=== PATIENT | female | born 1955 | race Caucasian/White ===

== ENCOUNTER → 2017-08-22 | Day surgery (SDC) | payer BC ==
[~2017-08-22] VITALS: Ht 157.5 cm
[~2017-08-22] MED LIST: ASPI81TA28 PO; CHOL2000 PO; CLR10 PO; FAMO20TA11 PO; FIBER CAP PO; GLC/500 PO; HYG/25 PO; LIDOCAINE HCL 2% 2 ML VIAL (20MG/ML) ONE; MIDAZOLAM HCL 1 MG/ML 2ML VIAL ONE; MULT-513 PO; PROPOFOL IV EMULSION 10 MG/ML 20 ML VIAL IV ONE; RALO60TA30 PO; SIMV80TA2 PO; VNTHFA/IN INH
[2017-08-22 13:28] VITALS: Ht 157.5 cm
--- NOTE | 2017-08-22 13:55 | Endo History and Physical ---
History & Physical Date of Service: Aug 22, 2017. Chief Complaint: Hx polyps Referring Physician: MIKE Shaw History of Present Illness For colonoscopy Past Surgical History Hx Cardiac Surgery: No Hx Internal Defibrillator: No Hx Pacemaker: No Hx Abdominal Surgery: No Hx of Implantable Prosthesis: No Hx Post-Op Nausea and Vomiting: Yes Hx Cancer Surgery: No Hx Thoracic Surgery: No Hx Orthopedic: No Hx Urinary Tract Surgery: No Family History Colon CA Social History Smoking Status: Never Smoker Hx Substance Use: No Hx Alcohol Use: No Allergies Coded Allergies: NO KNOWN DRUG ALLERGIES (Verified Allergy, Unknown, ., 08/12/17) POLLEN (Verified Allergy, Unknown, SINUS INFECTIONS, 08/12/17) Uncoded Allergies: FRESH FRUITS (Adverse Reaction, Unknown, OTHER, 08/12/17) PATIENT STATES THAT FROM FRESH FRUITS , ESPECIALLY APPLES AND GRAPES, SHE GETS A WEIRD FEELING IN HER THROAT AND ITCHING NOTED IN HER EARS. SHE WILL TAKE A BENADRYL AND IT WILL CLEAR UP. SHE STATES COOKED FRUIT IS OKAY WITH NO ADVERSE REACTIONS. Current Medications Reported Home Medications Medications Dose Route/Sig Max Daily Dose Days Date Category [Fiber Cap] 625 Mg PO BID 08/12/17 Reported Glucophage (Metformin Hcl) 500 Mg Tab 500 Mg PO BID 08/12/17 Reported Evista (Raloxifene Hcl) 60 Mg Tab 60 Mg PO HS 08/12/17 Reported Hygroton (Chlorthalidone) 25 Mg Tab 0.5 Tab PO QPM 08/12/17 Reported Vitamin D3 (Cholecalciferol) 2,000 Unit Cap 1 Cap PO QAM 90 08/12/17 Reported Ventolin Hfa (Albuterol) 200 Puffs/01719 Mcg Aers 2-4 Puffs INH Q6H PRN 08/12/17 Reported Zocor (Simvastatin) 80 Mg Tab 80 Mg PO QPM 08/25/13 Reported Mvi With Minerals (Multivitamins/Minerals) Tab 1 Tab PO QAM 08/25/13 Reported Claritin (Loratadine) 10 Mg Tab 10 Mg PO DAILY PRN 08/25/13 Reported Aspirin Ec (Aspirin) 81 Mg Tab 81 Mg PO QPM 08/25/13 Reported Pepcid (Famotidine) 20 Mg Tab 20 Mg PO BID 02/04/07 Reported Vital Signs Weight (Kilograms): 0.00 Height (Feet): 5 Height (Inches): 2 Date Time Temp Pulse Resp B/P (MAP) Pulse Ox O2 Delivery O2 Flow Rate FiO2 08/22/17 13:36 37 88 18 166/93 (117) 93 Room Air Physical Exam General Appearance: + obese Respiratory/Chest: Respiratory effort: no dyspnea Cardiovascular: Heart Auscultation: RRR Abdomen: Inspection & Palpation: soft Assessment and Plan Hx of polyps for colonoscopy
--- NOTE | 2017-08-22 14:26 | Discharge Instructions ---
Endoscopy Patient Instructions Date / Procedure(s) Performed Aug 22, 2017. Colonoscopy Allergy Information Coded Allergies: NO KNOWN DRUG ALLERGIES (Verified Allergy, Unknown, ., 08/12/17) POLLEN (Verified Allergy, Unknown, SINUS INFECTIONS, 08/12/17) Uncoded Allergies: FRESH FRUITS (Adverse Reaction, Unknown, OTHER, 08/12/17) PATIENT STATES THAT FROM FRESH FRUITS , ESPECIALLY APPLES AND GRAPES, SHE GETS A WEIRD FEELING IN HER THROAT AND ITCHING NOTED IN HER EARS. SHE WILL TAKE A BENADRYL AND IT WILL CLEAR UP. SHE STATES COOKED FRUIT IS OKAY WITH NO ADVERSE REACTIONS. Discharge Date / Findings Aug 22, 2017. polyp, diverticulosis, hemorrhoids Medication Instructions Stopped Medication(s): Metformin on Tuesday08-19-17 Restart Stopped Medication(s): resume meds Reported Home Medications Medications Dose Route/Sig Max Daily Dose Days Date Category [Fiber Cap] 625 Mg PO BID 08/12/17 Reported Glucophage (Metformin Hcl) 500 Mg Tab 500 Mg PO BID 08/12/17 Reported Evista (Raloxifene Hcl) 60 Mg Tab 60 Mg PO HS 08/12/17 Reported Hygroton (Chlorthalidone) 25 Mg Tab 0.5 Tab PO QPM 08/12/17 Reported Vitamin D3 (Cholecalciferol) 2,000 Unit Cap 1 Cap PO QAM 90 08/12/17 Reported Ventolin Hfa (Albuterol) 200 Puffs/75355 Mcg Aers 2-4 Puffs INH Q6H PRN 08/12/17 Reported Zocor (Simvastatin) 80 Mg Tab 80 Mg PO QPM 08/25/13 Reported Mvi With Minerals (Multivitamins/Minerals) Tab 1 Tab PO QAM 08/25/13 Reported Claritin (Loratadine) 10 Mg Tab 10 Mg PO DAILY PRN 08/25/13 Reported Aspirin Ec (Aspirin) 81 Mg Tab 81 Mg PO QPM 08/25/13 Reported Pepcid (Famotidine) 20 Mg Tab 20 Mg PO BID 02/04/07 Reported Provider Instructions Activity Restrictions - No exercising or heavy lifting for 24 hours. - Do not drink alcohol the day of the procedure. - Do not drive a car or operate machinery until the day after the procedure. - Do not make any important decisions or sign important papers in 24 hours after the procedure. Following Day: - Return to full activity which may include returning to work/school. Diet Start your diet with liquids and light foods (jello, soup, juice, toast). Then eat your usual diet if not nauseated. Treatment For Common After Affects For mild abdominal pain, bloating, or excessive gas: - Rest - Eat lightly - Lie on right side Follow-Up Information Follow-up with MIKE Shaw as scheduled Anesthesia Information What You Should Know You have had a procedure that required some medicine to reduce anxiety and discomfort. This treatment is called moderate sedation. After receiving the treatment, you may be sleepy, but you will be able to breathe on your own. The effects of the treatment may last for several hours. Follow these instructions along with Activity/Diet recommendations noted above: * Do NOT do anything where dizziness or clumsiness would be dangerous. * Rest quietly at home today, then you can be up and about tomorrow. * Have a responsible person stay with you the rest of today. * You may have had an I.V. today. If so, you may take the dressing off later today. Recommendations Call your doctor if: * Trouble breathing * Continuous vomiting for more than 24 hours * Temperature above 101 degrees * Severe abdominal pain or bloating * Pain not relieved by pain medicine ordered * There is increased drainage or redness from any incision * A large amount of rectal bleeding greater than 2-3 tablespoons. (If you had a polyp/s removed or have hemorrhoids, a small amount of blood - from the rectum is to be expected.) * You have any unanswered questions or concerns. IN THE EVENT OF A SERIOUS EMERGENCY, GO TO THE NEAREST EMERGENCY ROOM Your discharge instructions were prepared by provider Irineo Durand. Patient Instructions Signature Page Aydee Vega Patient (or Guardian) Signature/Date: I have read and understand the instructions given to me by my caregivers. Caregiver/RN/Doctor Signature/Date: The above-named patient and/or guardian has received patient instructions on this date. + Original Patient Signature Page (only) stays with chart. Please make copy for patient.
--- NOTE | 2017-08-22 14:29 | GI REPORT ---
Procedure Date: 08/22/2017 1:56 PM Procedure: Colonoscopy Indications: Personal history of colonic polyps Medicines: Midazolam 2 mg IV, Propofol total dose 210 mg IV, Lidocaine 40 mg IV Complications: No immediate complications. Estimated Blood Loss: Estimated blood loss was minimal. Procedure: Pre-Anesthesia Assessment: - Prior to the procedure, a History and Physical was performed, and patient medications, allergies and sensitivities were reviewed. The patient's tolerance of previous anesthesia was reviewed. - The risks and benefits of the procedure and the sedation options and risks were discussed with the patient. All questions were answered and informed consent was obtained. After I obtained informed consent, the scope was passed under direct vision. Throughout the procedure, the patient's blood pressure, pulse, and oxygen saturations were monitored continuously. The scope was introduced through the anus and advanced to the cecum, identified by appendiceal orifice and ileocecal valve. The colonoscopy was somewhat difficult due to significant looping. Successful completion of the procedure was aided by applying abdominal pressure. The patient tolerated the procedure well. The quality of the bowel preparation was good. Findings: A few diverticula were found in the sigmoid colon. Non-bleeding internal hemorrhoids were found during endoscopy. The hemorrhoids were moderate. A 3 mm polyp was found in the cecum. The polyp was sessile. The polyp was removed with a cold biopsy forceps. Resection and retrieval were complete. Estimated blood loss was minimal. Impression: - Diverticulosis in the sigmoid colon. - Non-bleeding internal hemorrhoids. - One 3 mm polyp in the cecum, removed with a cold biopsy forceps. Resected and retrieved. Recommendation: - Discharge patient to home (ambulatory). - Continue present medications. - Await pathology results. - Return to primary care physician PRN. Irineo Durand M.D. Irineo Durand MD 08/22/2017 2:29:03 PM This report has been signed electronically. Note Initiated On: 08/22/2017 1:56 PM I attest to the content of the Intraoperative Record and orders documented therein, exceptions below
[2017-08-22 15:02] VITALS: BP 144/96; PULSE 79; O2SAT 98
--- NOTE | 2017-08-22 15:08 | Anesthesiology Progress Note ---
Anesthesia Post Op Note Date & Time Aug 22, 2017 at 15:08 Vital Signs Pain Intensity: 0 Vital Signs Past 12 Hours Date Time Temp Pulse Resp B/P (MAP) Pulse Ox O2 Delivery O2 Flow Rate FiO2 08/22/17 15:02 79 18 144/96 (112) 98 Room Air 08/22/17 14:47 79 18 147/97 (114) 93 Room Air 08/22/17 14:32 78 18 132/94 (107) 91 Room Air 08/22/17 13:36 37 88 18 166/93 (117) 93 Room Air Notes Mental Status: alert / awake / arousable, participated in evaluation Pt Amnestic to Procedure: Yes Nausea / Vomiting: adequately controlled Pain: adequately controlled Airway Patency, RR, SpO2: stable & adequate BP & HR: stable & adequate Hydration State: stable & adequate Anesthetic Complications: no major complications apparent
== END | disposition home or self-care (01) ==
LOC: C.GI 13:06
PROVIDERS: ATTEND Internal Medicine Gastroenterology
DX: Z12.11 Encounter for screening for malignant neoplasm of colon (principal); D12.0 Benign neoplasm of cecum; K57.30 Diverticulosis of large intestine without perforation or abscess without bleeding; K64.8 Other hemorrhoids; Z86.010 Personal history of colon polyps; Z80.0 Family history of malignant neoplasm of digestive organs; Z79.82 Long term (current) use of aspirin; Z79.84 Long term (current) use of oral hypoglycemic drugs; Z79.899 Other long term (current) drug therapy

== ENCOUNTER → 2017-10-14 | Outpatient (CLI) | payer BC ==
[~2017-10-14] MED LIST changes: -LIDOCAINE HCL 2% 2 ML VIAL (20MG/ML) ONE; -MIDAZOLAM HCL 1 MG/ML 2ML VIAL ONE; -PROPOFOL IV EMULSION 10 MG/ML 20 ML VIAL IV ONE
--- NOTE | 2017-10-14 12:57 | MAMMOGRAPHY REPORT ---
BILATERAL DIGITAL SCREENING MAMMOGRAM TOMOSYNTHESIS WITH CAD: 10/14/2017 CLINICAL HISTORY: Routine screening. Patient has no complaints. TECHNIQUE: Breast tomosynthesis in addition to standard 2D mammography was performed. Current study was also evaluated with a Computer Aided Detection (CAD) system. COMPARISON: Comparison is made to exams dated: 10/12/2016 mammogram, 10/07/2015 mammogram, 10/02/2014 mammogram, 10/01/2013 mammogram, 09/20/2012 mammogram, and 09/13/2011 mammogram - [facility]. BREAST COMPOSITION: The tissue of both breasts is almost entirely fatty. FINDINGS: No suspicious masses, calcifications, or areas of architectural distortion are noted in ei ther breast. There has been no significant interval change compared to prior exams. A biopsy marker clip is again noted within the right lower inner quadrant. A few punctate benign-appearing calcifica tions are again seen adjacent to the biopsy marker clip. IMPRESSION: ACR BI-RADS CATEGORY 2: BENIGN There is no mammographic evidence of malignancy. A 1 year screening mammogram is recommended. The pa tient will receive written notification of the results. Approximately 10% of breast cancers are not detected with mammography. A negative mammographic report should not delay biopsy if a clinically suggestive mass is present. Kristy Dave M.D. /:10/14/2017 07:37:22 [address]ing [address] Manager: Ivis BARY(R)(M), [facility] letter sent: Normal 1/2 BI-RADS Code: ACR BI-RADS Category 2: Benign
== END | disposition home or self-care (01) ==
LOC: C.MAMM 07:09
PROVIDERS: ATTEND Nurse Practitioner Family
DX: Z12.31 Encounter for screening mammogram for malignant neoplasm of breast (principal)